=== PATIENT | female | born 1950 | race Caucasian/White ===

== ENCOUNTER 2018-05-14 20:56 | Emergency (ER) | payer OTHER ==
[2018-05-14 21:43] LABS: Absolute Monocytes 0.2 K/uL (0.1-1.3); Absolute Neutrophil 4.5 K/uL (1.8-8.0); Basophils % 0.7 % (0-1.3); Eosinophils % 1.4 % (0-4.4); Lymphocytes % 17.7 % (15.3-44.8); MCH 29.1 pg (27.0-35.0); MCV 85.8 fL (80-100); RBC Red Blood Cell Count 4.55 M/uL (3.86-4.86)
[2018-05-14 21:44] LABS: Protime INR 0.99
[2018-05-14 22:05] LABS: ALT/SGPT 28 U/L (12-78); AST/SGOT 20 U/L (15-37); Albumin 3.6 g/dL (3.4-5.0); Alkaline Phosphatase 79 U/L (45-117); BUN Blood Urea Nitrogen 17 mg/dL (7-18); Bicarbonate 27 mmol/L (21-32); Bilirubin Direct 0.1 mg/dL (0-0.2); Bilirubin Total 0.4 mg/dL (0.2-1.0); Glucose Level 144 mg/dL (74-106); Magnesium 1.8 mg/dL (1.8-2.4); NT PRO-BNP 93 pg/mL (<125); Potassium 3.6 mmol/L (3.5-5.1); Protein, Total 6.9 g/dL (6.4-8.2); Sodium Level 141 mmol/L (136-145); Troponin (Emerg Dept Use Only) < 0.02 ng/mL (0.0-0.045)
--- NOTE | 2018-05-14 22:12 | RAD REPORT ---
EXAM DESCRIPTION: RAD - Chest Single View - 05/14/2018 9:42 pm CLINICAL HISTORY: Shortness of breath COMPARISON: None. TECHNIQUE: AP portable chest image was obtained 2139 hours . FINDINGS: No peripheral mass, consolidation or significant failure. Interstitial markings are mildly prominent, probably baseline. Heart and vasculature are normal. No measurable pleural effusion and n o pneumothorax. No acute bony abnormality seen. No acute aortic findings suspected. IMPRESSION: Baseline examination shows a mild interstitial prominence. No focal consolidation, mass or failure.
--- NOTE | 2018-05-15 01:17 | EDPHYS ---
Physician Documentation [facility] Name: Barbara Ortega Age: 67 yrs Sex: Female : 1950 Arrival Date: 05/14/2018 Time: 20:59 Bed 27 Private MD: ED Physician Ankit Briggs HPI: 05/14 22:00 This 67 yrs old Female presents to ER via Ambulatory with complaints of pm1 Breathing Difficulty. 22:00 The patient has shortness of breath that occurred at home. Onset: The symptoms/episode pm1 began/occurred at 20:00. Duration: The symptoms are continuous, Resolved on arrival to the ER. The patient's shortness of breath is aggravated by Patient reports reaction to flu shot. Associated signs and symptoms: Pertinent positives: Dry mouth and sensation of swelling tongue, Pertinent negatives: chest pain, non-productive cough, productive cough, diaphoresis, dizziness, fever, nausea, numbness in extremities, vomiting. Severity of symptoms: in the emergency department the symptoms have resolved Pain is currently a 0 / 10. The patient has not experienced similar symptoms in the past. The patient has not recently seen a physician. Patient with flu shot today with her grandchild. Has not gotten the flu shot in over 5 years. After the flu shot the patient reported dry mouth, sensation of swelling tongue and difficulty breathing. Patient did not take any Benadryl and all her symptoms resolved with arrival tot he emergency department.. Historical: - Allergies: 21:14 Sulfa (Sulfonamide Antibiotics); bb 21:14 Tree Nuts; bb - Home Meds: 21:14 lisinopril 20 mg Oral tab 1 tab once daily [Active]; simvastatin 40 mg Oral tab 1 tab bb once daily [Active]; Fish Oil oral oral [Active]; - PMHx: 21:14 Hypertension; High Cholesterol; bb - Immunization history:: Adult Immunizations up to date. - Social history:: Smoking status: Patient/guardian denies using tobacco, never smoked. - Ebola Screening: : No symptoms or risks identified at this time. ROS: 22:00 Constitutional: Negative for fever, chills, and weight loss, Eyes: Negative for injury, pm1 pain, redness, and discharge, ENT: Negative for injury, pain, and discharge, Neck: Negative for injury, pain, and swelling, Cardiovascular: Negative for chest pain, palpitations, and edema, Respiratory: Negative for shortness of breath, cough, wheezing, and pleuritic chest pain, Abdomen/GI: Negative for abdominal pain, nausea, vomiting, diarrhea, and constipation, Back: Negative for injury and pain, : Negative for injury, bleeding, discharge, and swelling, MS/Extremity: Negative for injury and deformity, Skin: Negative for injury, rash, and discoloration, Neuro: Negative for headache, weakness, numbness, tingling, and seizure. Exam: 22:00 Constitutional: This is a well developed, well nourished patient who is awake, alert, pm1 and in no acute distress. Head/Face: Normocephalic, atraumatic. Eyes: Pupils equal round and reactive to light, extra-ocular motions intact. Lids and lashes normal. Conjunctiva and sclera are non-icteric and not injected. Cornea within normal limits. Periorbital areas with no swelling, redness, or edema. ENT: Nares patent. No nasal discharge, no septal abnormalities noted. Tympanic membranes are normal and external auditory canals are clear. Oropharynx with no redness, swelling, or masses, exudates, or evidence of obstruction, uvula midline. Mucous membranes moist. Neck: Trachea midline, no thyromegaly or masses palpated, and no cervical lymphadenopathy. Supple, full range of motion without nuchal rigidity, or vertebral point tenderness. No Meningismus. Chest/axilla: Normal chest wall appearance and motion. Nontender with no deformity. No lesions are appreciated. Cardiovascular: Regular rate and rhythm with a normal S1 and S2. No gallops, murmurs, or rubs. Normal PMI, no JVD. No pulse deficits. Respiratory: Lungs have equal breath sounds bilaterally, clear to auscultation and percussion. No rales, rhonchi or wheezes noted. No increased work of breathing, no retractions or nasal flaring. Abdomen/GI: Soft, non-tender, with normal bowel sounds. No distension or tympany. No guarding or rebound. No evidence of tenderness throughout. Back: No spinal tenderness. No costovertebral tenderness. Full range of motion. Skin: Warm, dry with normal turgor. Normal color with no rashes, no lesions, and no evidence of cellulitis. MS/ Extremity: Pulses equal, no cyanosis. Neurovascular intact. Full, normal range of motion. 22:00 Neuro: Orientation: is normal, Motor: is normal, Sensation: is normal, no obvious gross deficits, Gait: is steady, at a normal pace, without difficulty. Vital Signs: 21:06 BP 178 / 74; Pulse 86; Resp 18; Temp 98.2(O); Pulse Ox 99% on R/A; Weight 111.58 kg bb (R); Height 5 ft. 4 in. (162.56 cm) (R); Pain 0/10; 22:18 BP 141 / 61; Pulse 82; Resp 18; Pulse Ox 98% ; tl3 23:18 BP 140 / 60; Pulse 81; Resp 18; Pulse Ox 99% on R/A; tl3 05/15 00:02 BP 129 / 56; Pulse 78; Resp 18; Pulse Ox 98% on R/A; tl3 05/14 21:06 Body Mass Index 42.23 (111.58 kg, 162.56 cm) bb MDM: 05/14 21:06 Patient medically screened. pm1 05/15 00:30 Data reviewed: vital signs. Data interpreted: Pulse oximetry: on room air is 98 %. pm1 Interpretation: normal. Counseling: I had a detailed discussion with the patient and/or guardian regarding: the historical points, exam findings, and any diagnostic results supporting the discharge/admit diagnosis, lab results, radiology results, the need for outpatient follow up, to return to the emergency department if symptoms worsen or persist or if there are any questions or concerns that arise at home. 00:30 Differential diagnosis: Anxiety Reaction Myocardial Infarction pneumonia, Pulmonary pm1 Embolism reactive airway disease, Unstable Angina Allergic reaction. 05/14 21:14 Order name: Basic Metabolic Panel; Complete Time: 22:08 pm1 05/14 21:14 Order name: CBC with Diff; Complete Time: 21:46 pm1 05/14 21:14 Order name: LFT's; Complete Time: 22:08 pm1 05/14 21:14 Order name: Magnesium; Complete Time: 22:08 pm1 05/14 21:14 Order name: NT PRO-BNP; Complete Time: 22:08 pm1 05/14 21:14 Order name: PT-INR; Complete Time: 22:08 pm1 05/14 21:14 Order name: Troponin (emerg Dept Use Only); Complete Time: 22:08 pm1 05/14 21:14 Order name: XRAY Chest (1 view); Complete Time: 22:20 pm1 05/14 21:14 Order name: EKG; Complete Time: 21:15 pm1 05/14 21:14 Order name: Cardiac monitoring; Complete Time: 21:26 pm1 05/14 21:14 Order name: EKG - Nurse/Tech; Complete Time: 21:26 pm1 05/14 21:14 Order name: IV Saline Lock; Complete Time: 21:26 pm1 05/15 00:07 Order name: Troponin (Emerg Dept Use Only); Complete Time: 00:29 EDMS 05/14 21:14 Order name: Labs collected and sent; Complete Time: 21: pm1 05/14 21:14 Order name: O2 Per Protocol; Complete Time: 21:26 pm1 05/14 21:14 Order name: O2 Sat Monitoring; Complete Time: 21:27 pm1 Administered Medications: No medications were administered Disposition: 02:04 Co-signature as Attending Physician, Ankit Briggs MD I agree with the assessment and tw4 plan of care. Attestation: The patient's history, exam findings, diagnostics, and a summary of any interventions or procedures was reviewed in detail with Geo Guo NP. Disposition: 05/15/18 00:32 Discharged to Home. Impression: Acute stress reaction. - Condition is Stable. - Discharge Instructions: Stress and Stress Management. - Medication Reconciliation Form, Thank You Letter form. - Follow up: Emergency Department; When: As needed; Reason: Worsening of condition. Follow up: Private Physician; When: 2 - 3 days; Reason: Recheck today's complaints, Continuance of care, Re-evaluation by your physician. - Problem is new. - Symptoms have improved. Signatures: Dispatcher [employer] EDMS Ana Luisa Lozada RN RN bb Marinas, Patrick, NP MEETING FACILITATOR pm1 Ankit Briggs MD MD tw4 Lamar King RN RN tl3 Corrections: (The following items were deleted from the chart) 00:43 00:32 05/15/2018 00:32 Discharged to Home. Impression: Acute stress reaction. Condition tl3 is Stable. Forms are Medication Reconciliation Form, Thank You Letter, Antibiotic Education, Prescription Opioid Use. Follow up: Emergency Department; When: As needed; Reason: Worsening of condition. Follow up: Private Physician; When: 2 - 3 days; Reason: Recheck today's complaints, Continuance of care, Re-evaluation by your physician. Problem is new. Symptoms have improved. pm1
--- NOTE | 2018-05-15 01:17 | ER ---
Nurse's Notes [facility] Name: Barbara Ortega Age: 67 yrs Sex: Female : 1950 Arrival Date: 05/14/2018 Time: 20:59 Bed 27 Private MD: Diagnosis: Acute stress reaction Presentation: 05/14 21:00 Presenting complaint: Patient states: she received a flu shot this afternoon and began bb feeling a tightness to her throat and she was worried as she is allergic to sulfa and tree nuts. Transition of care: patient was not received from another setting of care. Onset of symptoms was May 14, 2018. Risk Assessment: Do you want to hurt yourself or someone else? Patient reports no desire to harm self or others. Initial Sepsis Screen: Does the patient meet any 2 criteria? No. Patient's initial sepsis screen is negative. Does the patient have a suspected source of infection? No. Patient's initial sepsis screen is negative. Care prior to arrival: None. 21:00 Method Of Arrival: Ambulatory bb 21:00 Acuity: DENNYS 4 bb Triage Assessment: 21:27 General: Appears in no apparent distress. comfortable, Behavior is calm, cooperative. mg2 Respiratory: Reports shortness of breath at rest Onset: The symptoms/episode began/occurred today, the patient has mild shortness of breath. Historical: - Allergies: 21:14 Sulfa (Sulfonamide Antibiotics); bb 21:14 Tree Nuts; bb - Home Meds: 21:14 lisinopril 20 mg Oral tab 1 tab once daily [Active]; simvastatin 40 mg Oral tab 1 tab bb once daily [Active]; Fish Oil oral oral [Active]; - PMHx: 21:14 Hypertension; High Cholesterol; bb - Immunization history:: Adult Immunizations up to date. - Social history:: Smoking status: Patient/guardian denies using tobacco, never smoked. - Ebola Screening: : No symptoms or risks identified at this time. Screenin:05 Abuse screen: Denies threats or abuse. Denies injuries from another. Nutritional mg2 screening: No deficits noted. Tuberculosis screening: No symptoms or risk factors identified. Fall Risk None identified. Assessment: 21:06 Reassessment: No changes from previously documented assessment. Patient is alert, tl3 oriented x 3, equal unlabored respirations, skin warm/dry/pink. Patient is alert/active/playful, equal unlabored respirations, skin warm/dry/pink. pt family at bedside. Pain: Denies pain. Cardiovascular: Patient's skin is warm and dry. Cardiovascular: Rhythm is regular. Respiratory: Airway is patent Respiratory effort is even, unlabored, Respiratory pattern is regular, symmetrical, Breath sounds are clear bilaterally. 21:08 Reassessment: Geo at bedside for assessment. tl3 22:18 Reassessment: Patient appears in no apparent distress at this time. No changes from tl3 previously documented assessment. Patient and/or family updated on plan of care and expected duration. Pain level reassessed. Patient is alert, oriented x 3, equal unlabored respirations, skin warm/dry/pink. 23:18 Reassessment: Patient appears in no apparent distress at this time. No changes from tl3 previously documented assessment. Patient and/or family updated on plan of care and expected duration. Pain level reassessed. Patient is alert, oriented x 3, equal unlabored respirations, skin warm/dry/pink. pt aware of POC, no needs at this time. 05/15 00:02 Reassessment: Patient appears in no apparent distress at this time. No changes from tl3 previously documented assessment. Patient and/or family updated on plan of care and expected duration. Pain level reassessed. Patient is alert, oriented x 3, equal unlabored respirations, skin warm/dry/pink. pt got up and ambulated to restroom than about the room, no discomfort, no needs at this time. 00:02 Reassessment: Repeat Troponin drawn and sent to lab. tl3 Vital Signs: 05/14 21:06 BP 178 / 74; Pulse 86; Resp 18; Temp 98.2(O); Pulse Ox 99% on R/A; Weight 111.58 kg bb (R); Height 5 ft. 4 in. (162.56 cm) (R); Pain 0/10; 22:18 BP 141 / 61; Pulse 82; Resp 18; Pulse Ox 98% ; tl3 23:18 BP 140 / 60; Pulse 81; Resp 18; Pulse Ox 99% on R/A; tl3 05/15 00:02 BP 129 / 56; Pulse 78; Resp 18; Pulse Ox 98% on R/A; tl3 05/14 21:06 Body Mass Index 42.23 (111.58 kg, 162.56 cm) bb ED Course: 05/14 20:59 Patient arrived in ED. ds1 21:03 Geo Guo NP is PHCP. pm1 21:03 Ankit Briggs MD is Attending Physician. pm1 21:04 Tariq Nava, RN is Primary Nurse. mg2 21:05 No provider procedures requiring assistance completed. mg2 21:06 Patient has correct armband on for positive identification. Bed in low position. Call mg2 light in reach. Side rails up X 1. Pulse ox on. NIBP on. 21:06 Patient placed in an exam room, on a stretcher, on pulse oximetry. bb 21:12 Triage completed. bb 21:26 Inserted saline lock: 20 gauge in right antecubital area, using aseptic technique. mg2 Blood collected. 21:41 X-ray completed. Portable x-ray completed in exam room. Patient tolerated procedure ls3 well. 21:42 XRAY Chest (1 view) In Process Unspecified. EDMS 05/15 00:14 Troponin (Emerg Dept Use Only) Sent. tl3 00:42 IV discontinued, intact, bleeding controlled, No redness/swelling at site. Pressure tl3 dressing applied. Administered Medications: No medications were administered Outcome: 00:32 Discharge ordered by MD. pm1 00:42 Discharged to home ambulatory. tl3 00:42 Condition: stable 00:42 Discharge instructions given to patient, Instructed on discharge instructions, follow up and referral plans. medication usage, Demonstrated understanding of instructions, follow-up care, medications. 00:43 Patient left the ED. tl3 Signatures: Dispatcher [employer] EDWV Jennifer Fay ds1 Ana Luisa Lozada RN RN bb Geo Guo, NICO CARD FEEDER pm1 Lamar King RN RN tl3 Tariq Nava, KARINA RN mg2 Saleem Bales ls3 Corrections: (The following items were deleted from the chart) 05/14 21:15 21:06 BP 178 / 74; Pulse 86bpm; Resp 18bpm; Pulse Ox 99% RA; tl3 bb 21:27 21:06 Patient did not have IV access during this emergency room visit. tl3 mg2
--- NOTE | 2018-05-15 08:26 | EKG ---
Test Date: 2018-05-14 Test Time: 21:25:00 Solutions Delivery Consultant: TL MEASUREMENT RESULTS: Intervals: Rate: 86 TN: 146 QRSD: 92 QT: 366 QTc: 437 [place]: P: 62 TN: 146 QRS: 43 T: 111 INTERPRETIVE STATEMENTS: Normal sinus rhythm non specific T wave abnormality Abnormal ECG Compared to ECG 03/25/2008 21:23:58 T-wave abnormality now present Sinus bradycardia no longer present Electronically Signed On 05-15-18 08:25:28 CDT by Raúl Jaquez
== END 2018-05-15 00:43 | disposition home or self-care (01) ==
LOC: ER 20:56
DX: F43.0 Acute stress reaction (principal); I10 Essential (primary) hypertension; E78.00 Pure hypercholesterolemia, unspecified; Z88.2 Allergy status to sulfonamides; Z91.018 Allergy to other foods
CPT/HCPCS: 36415; 71045; 80048; 80076; 83735; 83880; 84484; 85025; 85610; 93005; 99284